=== PATIENT | female | born 1935 | race Caucasian/White ===

== ENCOUNTER 2018-03-10 14:41 | Emergency (ER) | payer OTHER ==
--- NOTE | 2018-03-10 15:30 | RAD REPORT ---
EXAM DESCRIPTION: CT - [id number] - 03/10/2018 3:08 pm CLINICAL HISTORY: Trip and fall, head and neck injury COMPARISON: None. TECHNIQUE: Axial 5 mm thick images of the head were obtained. Axial 2 mm thick images of the cervic al spine were obtained with sagittal and coronal reconstruction images generated and reviewed. All CT scans are performed using dose optimization technique as appropriate and may include automated exposure control or mA/KV adjustment according to patient size. FINDINGS: No intracranial hemorrhage, mass, edema or acute intracranial finding. No acute cortical based infarc tion. No cortical edema or sulcal effacement. Patient does have atrophy and chronic ischemic change. Ventricles do appear to be somewhat out of proportion to the amount of volume loss. Correlation can b e made with any clinical findings or history of normal pressure hydrocephalus. No suspicion for trans ependymal migration of CSF. No extra-axial fluid collections. Mastoid air cells and paranasal sinuses are clear. No globe or orbit abnormality seen. Cervical bodies are normal in height. No subluxation abnormality. There is straightening of the usual cervical lordosis. No fracture or acute vertebral body finding seen. C2-3 disc space narrowing is pr esent. There are moderate facet joint degenerative changes at this level. Advanced right-sided facet degenerative change at C3-4 with right foraminal stenosis. Large endplate spurs project from the left posterior margin C4-5. There is central spinal stenosis and probable flattening of the cord. Signifi cant right facet degenerative change present with right foraminal stenosis. Advanced facet joint dege nerative change on the right at C5-6 with foraminal stenosis. There is an overall slight disc space n arrowing throughout all levels of the cervical spine. No paraspinal mass or hematoma. IMPRESSION: No hemorrhage, edema or acute intracranial finding. Patient has a small scalp hematoma l eft periorbital region. Patient has atrophy and chronic ischemic change with ventricles appearing out of proportion to the am ount of volume loss. Correlation is needed with any exam findings or history of normal pressure hydro cephalus. Advanced cervical spine degenerative changes are present. Patient has central spinal stenosis and pro bable cord flattening at C4-5. No fracture or acute cervical spine finding.
--- NOTE | 2018-03-10 15:53 | RAD REPORT ---
EXAM DESCRIPTION: RAD - Ribs Left - 03/10/2018 3:31 pm CLINICAL HISTORY: Trip and fall, left-sided rib pain COMPARISON: None. FINDINGS: No displaced rib fracture is seen and no non-displaced rib fractures suspected. No aggress fabiola rib lesion. No underlying pneumothorax, effusion, infiltrate or pulmonary contusion. Prominent co stochondral calcifications seen. IMPRESSION: Negative left rib series.
--- NOTE | 2018-03-10 15:54 | RAD REPORT ---
EXAM DESCRIPTION: RAD - Chest Single View - 03/10/2018 3:31 pm CLINICAL HISTORY: Trip and fall, chest, rib and elbow pain COMPARISON: None. TECHNIQUE: AP portable chest image was obtained 1518 hours . FINDINGS: Mild underlying fibrotic lung pattern is present. No pulmonary contusion or acute lung par enchymal process seen. Heart and vasculature are normal. No measurable pleural effusion and no pneumo thorax. No acute bone finding. Thoracolumbar scoliosis is noted. No gross rib abnormality noted. No a cute aortic findings suspected. IMPRESSION: No pulmonary contusion, pneumothorax or other acute traumatic injury to the chest. Fibrotic lung change seen as a baseline.
[2018-03-10] MEDS ORDERED: LIDOCAINE 1% W/EPI 1:100,000 MDV 50 ML VIAL ONE (17:10)
--- NOTE | 2018-03-10 17:32 | EDPHYS ---
Physician Documentation [facility] Name: Socorro Mccain Age: 82 yrs Sex: Female : 1935 Arrival Date: 03/10/2018 Time: 14:42 Bed 27 Private MD: ED Physician Eliezer Ly HPI: 03/10 19:10 This 82 yrs old Female presents to ER via Ambulatory with complaints of Fall kdr Injury. 19:10 Details of fall: The patient fell from an upright position, while standing. Onset: The kdr symptoms/episode began/occurred suddenly, just prior to arrival. Associated injuries: The patient sustained injury to the head. Severity of symptoms: At their worst the symptoms were mild, in the emergency department the symptoms are unchanged. The patient has not experienced similar symptoms in the past. The patient has not recently seen a physician. Historical: - Allergies: 14:47 No Known Allergies; ch - Home Meds: 14:47 levothyroxine oral [Active]; bloodpressure pill [Active]; ch - PMHx: 14:47 Hypothyroidism; Hypertension; ch - PSHx: 14:47 Thyroidectomy; Appendectomy; ch - Immunization history: Last tetanus immunization: unknown. - Social history:: Smoking status: Patient/guardian denies using tobacco. ROS: 19:10 Constitutional: Negative for fever, chills, and weight loss, Eyes: Negative for injury, kdr pain, redness, and discharge, ENT: Negative for injury, pain, and discharge, Neck: Negative for injury, pain, and swelling, Cardiovascular: Negative for chest pain, palpitations, and edema, Respiratory: Negative for shortness of breath, cough, wheezing, and pleuritic chest pain, Abdomen/GI: Negative for abdominal pain, nausea, vomiting, diarrhea, and constipation, Back: Negative for injury and pain, : Negative for injury, bleeding, discharge, and swelling, MS/Extremity: Negative for injury and deformity, Neuro: Negative for headache, weakness, numbness, tingling, and seizure activity. Psych: Negative for depression, anxiety, suicide ideation, homicidal ideation, and hallucinations, Allergy/Immunology: Negative for hives, rash, and allergies, Endocrine: Negative for neck swelling, polydipsia, polyuria, polyphagia, and marked weight changes, Hematologic/Lymphatic: Negative for swollen nodes, abnormal bleeding, and unusual bruising. 19:10 Skin: Positive for abrasion(s), laceration(s), Negative for abscesses. Exam: 19:10 Constitutional: This is a well developed, well nourished patient who is awake, alert, kdr and in no acute distress. Eyes: Pupils equal round and reactive to light, extra-ocular motions intact. Lids and lashes normal. Conjunctiva and sclera are non-icteric and not injected. Cornea within normal limits. Periorbital areas with no swelling, redness, or edema. ENT: Nares patent. No nasal discharge, no septal abnormalities noted. Tympanic membranes are normal and external auditory canals are clear. Oropharynx with no redness, swelling, or masses, exudates, or evidence of obstruction, uvula midline. Mucous membranes moist. Neck: Trachea midline, no thyromegaly or masses palpated, and no cervical lymphadenopathy. Supple, full range of motion without nuchal rigidity, or vertebral point tenderness. No Meningismus. Chest/axilla: Normal chest wall appearance and motion. Nontender with no deformity. No lesions are appreciated. Cardiovascular: Regular rate and rhythm with a normal S1 and S2. No gallops, murmurs, or rubs. Normal PMI, no JVD. No pulse deficits. Respiratory: Lungs have equal breath sounds bilaterally, clear to auscultation and percussion. No rales, rhonchi or wheezes noted. No increased work of breathing, no retractions or nasal flaring. Abdomen/GI: Soft, non-tender, with normal bowel sounds. No distension or tympany. No guarding or rebound. No evidence of tenderness throughout. Back: No spinal tenderness. No costovertebral tenderness. Full range of motion. 19:10 Head/face: Noted is contusion, that is superficial, of the forehead, a laceration(s), that is linear, that is jagged, 3 cm(s). Vital Signs: 14:49 BP 183 / 69; Pulse 58; Resp 16; Temp 98.3; Pulse Ox 99% on R/A; Weight 50.8 kg; Height ch 5 ft. 2 in. (157.48 cm); Pain 6/10; 16:30 BP 170 / 106; Pulse 68; Resp 16; Pulse Ox 99% on R/A; Pain 8/10; mb3 16:30 BP 162 / 49; Pulse 73; Resp 16; Pulse Ox 99% on R/A; Pain 3/10; mb3 14:49 Body Mass Index 20.48 (50.80 kg, 157.48 cm) ch Brannon Coma Score: 15:04 Eye Response: spontaneous(4). Verbal Response: oriented(5). Motor Response: obeys mb3 commands(6). Total: 15. Trauma Score (Adult): 15:04 Eye Response: spontaneous(1); Verbal Response: oriented(1); Motor Response: obeys mb3 commands(2); Systolic BP: > 89 mm Hg(4); Respiratory Rate: 10 to 29 per min(4); [place] Score: 15; Trauma Score: 12 Laceration: 17:30 Wound Repair of 3cm ( 1.2in ) subcutaneous laceration to left supraorbital region. jr8 Irregularly shaped.. Minimal bleeding noted.. Distal neuro/vascular/tendon intact. Anesthesia: Local anesthetic administered with 3 mls of 1% lidocaine w/ Epi. Wound prep: Extensive cleansing with betadine, Wound margin revised minimally, Wound explored extensively. Skin closed with 6 5-0 Prolene using interrupted sutures and sterile technique. Patient tolerated well. MDM: 17:31 Patient medically screened. kdr 19:10 Data reviewed: vital signs, nurses notes, lab test result(s), radiologic studies. kdr Counseling: I had a detailed discussion with the patient and/or guardian regarding: the historical points, exam findings, and any diagnostic results supporting the discharge/admit diagnosis, radiology results, the need for outpatient follow up. 03/10 15:05 Order name: CT Head C Spine; Complete Time: 16:54 kdr 03/10 15:05 Order name: CXR XRAY; Complete Time: 16:54 kdr 03/10 15:05 Order name: Ribs Left XRAY; Complete Time: 16:54 kdr Administered Medications: 17:20 Drug: Lidocaine-Epinephrine -1%: (1:100,000) 1 vials Volume: 20 ml; Route: Infiltration;jr8 17:59 Follow up: Response: No adverse reaction; Marked relief of symptoms mb3 17:52 Drug: Tetanus-Diphtheria Toxoid Adult 0.5 ml {Scalper Operator: [facility]. Exp: mb3 06/03/2020. Lot #: [id number]. } Route: IM; Site: right deltoid; 17:59 Follow up: Response: No adverse reaction mb3 Disposition: 19:10 I agree with the assessment and plan of care. kdr Disposition: 03/10/18 17:31 Discharged to Home. Impression: Fall, Closed head injury, rib contusions, multiple skin tears, forehead laceration. - Condition is Stable. - Discharge Instructions: Contusion, [id number], Facial Laceration, [id number], Sutured Wound Care, [id number], Head Injury, Adult, [id number]-ps-Oyqg. - Prescriptions for Keflex 500 mg Oral Capsule - take 1 capsule by ORAL route every 6 hours for 3 days; 12 capsule. - Medication Reconciliation Form, Thank You Letter, Antibiotic Education, Prescription Opioid Use form. - Follow up: Private Physician; When: 2 - 3 days; Reason: If symptoms return, Further diagnostic work-up, Recheck today's complaints, Continuance of care, Re-evaluation by your physician. - Problem is new. - Symptoms have improved. - Notes: Sutures should be taken out in 5 - 7 days. Signatures: Dispatcher [employer] EDMS Shantel Deloen RN RN Eliezer Ly MD MD [facility] Reji Cormier PA PA jr8 Elver Logan RN RN mb3 Corrections: (The following items were deleted from the chart) 17:59 17:31 03/10/2018 17:31 Discharged to Home. Impression: Fall, Closed head injury, rib mb3 contusions, multiple skin tears, forehead laceration. Condition is Stable. Forms are Medication Reconciliation Form, Thank You Letter, Antibiotic Education, Prescription Opioid Use. Follow up: Private Physician; When: 2 - 3 days; Reason: If symptoms return, Further diagnostic work-up, Recheck today's complaints, Continuance of care, Re-evaluation by your physician. Problem is new. Symptoms have improved. kdr
--- NOTE | 2018-03-10 17:32 | ER ---
Nurse's Notes [facility] Name: Socorro Mccain Age: 82 yrs Sex: Female : 1935 Arrival Date: 03/10/2018 Time: 14:42 Bed 27 Private MD: Diagnosis: Fall, Closed head injury, rib contusions, multiple skin tears, forehead laceration Presentation: 03/10 14:47 Presenting complaint: Patient states: I tripped and fell over a loose board about 1 ch hour ago. I hit my head and elbow on the floor. no LOC but very dizzy after. Care prior to arrival: None. Mechanism of Injury: Fall. Trauma event details: Injury occurred in the [facility], Injury occurred: at home. Injury occurred: March 10, 2018 Injury occurred at: 13:45. 14:47 Method Of Arrival: Ambulatory 14:47 Acuity: ELIZABETH 4 14:49 Transition of care: patient was not received from another setting of care. Onset of ch symptoms was March 10, 2018 at 13:45. Initial Sepsis Screen: Does the patient meet any 2 criteria? No. Patient's initial sepsis screen is negative. Does the patient have a suspected source of infection? No. Patient's initial sepsis screen is negative. Triage Assessment: 14:49 General: Appears in no apparent distress. comfortable, Behavior is calm, cooperative, ch appropriate for age. Pain: Complains of pain in forehead, left eye, left lateral posterior chest, left lateral anterior chest, left breast and left arm. Trauma Activation: Physician: ED Physician; Name: Dr. Ly; Notified At: 14:49; Arrived At: 14:49 Physician: General Surgeon; Name: ; Notified At: 14:49; Arrived At: Physician: Radiology; Name: ; Notified At: 14:49; Arrived At: Physician: Respiratory; Name: ; Notified At: 14:49; Arrived At: Physician: Lab; Name: ; Notified At: 14:49; Arrived At: Historical: - Allergies: 14:47 No Known Allergies; ch - Home Meds: 14:47 levothyroxine oral [Active]; bloodpressure pill [Active]; ch - PMHx: 14:47 Hypothyroidism; Hypertension; ch - PSHx: 14:47 Thyroidectomy; Appendectomy; ch - Immunization history: Last tetanus immunization: unknown. - Social history:: Smoking status: Patient/guardian denies using tobacco. Screenin:04 Abuse screen: Denies threats or abuse. Tuberculosis screening: No symptoms or risk mb3 factors identified. 15:07 Nutritional screening: No deficits noted. Fall Risk Fall in past 12 months (25 points). mb3 Primary Survey: 14:47 A: Airway: patent. 15:05 Breathing/Chest: Respiratory pattern: regular, Respiratory effort: spontaneous, mb3 unlabored, Breath sounds: clear, bilaterally. Circulation: Heart tones present. Pulses: palpable right radial artery, right dorsalis pedis artery, left radial artery and left dorsalis pedis artery. Skin color: pink. Disability Alert. 16:35 Reassessment Breathing/Chest Respiratory pattern Regular Respiratory effort Spontaneous mb3 Unlabored. Secondary Survey: 15:09 HEENT: Head Other left side of left eyebrow has contusion. Gastrointestinal: No mb3 deficits noted. Abdomen is soft, flat, Bowel sounds present in all quadrants. : No signs and/or symptoms were reported regarding the genitourinary system. Musculoskeletal: No signs and/or symptoms reported regarding the musculoskeletal system. Injury Description: Abrasion sustained to left elbow and left wrist is bleeding, slightly bleeding, with mild abrasion and ecchymosis visualized. Assessment: 14:47 General: Appears in no apparent distress. comfortable, Behavior is calm, cooperative, ch appropriate for age. 15:01 Reassessment: Out of room to CT. mb3 15:34 Reassessment: Back from CT. mb3 17:39 Reassessment: Patient and/or family updated on plan of care and expected duration. Pain mb3 level reassessed. Patient is alert, oriented x 3, equal unlabored respirations, skin warm/dry/pink. Patient states feeling better. Vital Signs: 14:49 BP 183 / 69; Pulse 58; Resp 16; Temp 98.3; Pulse Ox 99% on R/A; Weight 50.8 kg; Height ch 5 ft. 2 in. (157.48 cm); Pain 6/10; 16:30 BP 170 / 106; Pulse 68; Resp 16; Pulse Ox 99% on R/A; Pain 8/10; mb3 16:30 BP 162 / 49; Pulse 73; Resp 16; Pulse Ox 99% on R/A; Pain 3/10; mb3 14:49 Body Mass Index 20.48 (50.80 kg, 157.48 cm) Brannon Coma Score: 15:04 Eye Response: spontaneous(4). Verbal Response: oriented(5). Motor Response: obeys mb3 commands(6). Total: 15. Trauma Score (Adult): 15:04 Eye Response: spontaneous(1); Verbal Response: oriented(1); Motor Response: obeys mb3 commands(2); Systolic BP: > 89 mm Hg(4); Respiratory Rate: 10 to 29 per min(4); [place] Score: 15; Trauma Score: 12 ED Course: 14:42 Patient arrived in ED. sb2 14:49 Triage completed. ch 14:49 Arm band placed on left wrist. Patient placed in an exam room, on a stretcher. 14:55 Eliezer Ly MD is Attending Physician. [facility] 15:03 Elver Logan RN is Primary Nurse. mb3 15:08 CT Head C Spine In Process Unspecified. EDMS 15:19 X-ray completed. Patient tolerated procedure well. Patient moved to radiology via jb2 stretcher. Patient moved back from radiology. 15:30 CXR XRAY In Process Unspecified. EDMS 15:30 Ribs Left XRAY In Process Unspecified. EDMS 16:35 Patient maintains SpO2 saturation greater than 95% on room air. mb3 16:36 Patient has correct armband on for positive identification. Bed in low position. Call 3 light in reach. Side rails up X 1. Adult w/ patient. 16:36 Thermoregulation: warm blanket given to patient. mb3 17:10 Assist provider with laceration repair. Patient did not have IV access during this 3 emergency room visit. Administered Medications: 17:20 Drug: Lidocaine-Epinephrine -1%: (1:100,000) 1 vials Volume: 20 ml; Route: Infiltration;jr8 17:59 Follow up: Response: No adverse reaction; Marked relief of symptoms mb3 17:52 Drug: Tetanus-Diphtheria Toxoid Adult 0.5 ml {Glove Presser: [facility]. Exp: mb3 06/03/2020. Lot #: [id number]. } Route: IM; Site: right deltoid; 17:59 Follow up: Response: No adverse reaction mb3 Intake: 16:30 PO: 0ml; Total: 0ml. mb3 Outcome: 17:31 Discharge ordered by . kdr 17:53 Discharged to home ambulatory, with family. mb3 17:53 Condition: stable 17:53 Discharge instructions given to patient, family, Instructed on discharge instructions, follow up and referral plans. medication usage, Demonstrated understanding of instructions, follow-up care, medications, Prescriptions given X 1. 17:54 Patient's length of stay in the Emergency Department was greater than 2 hours. mb3 17:59 Patient left the ED. mb3 Signatures: Dispatcher [employer] EDMS Sahntel Deleon, RN RN Eliezer Antoine MD MD kdr Buechter, Jesse jb2 Roszak, Josh, PA PA jr8 Isabel Diez2 Elver Logan RN RN mb3 Corrections: (The following items were deleted from the chart) 16:35 16:33 Reassessment: Back from CT mb3 mb3 16:35 16:33 Reassessment: Out of room to CT mb3 mb3
[2018-03-10] MEDS ORDERED: TETANUS & DIPHTHERIA TOX,ADULT 0.5 ML VIAL ONE (17:48)
== END 2018-03-10 17:59 | disposition home or self-care (01) ==
LOC: ER 14:41
PROC: 0JQ10ZZ Repair Face Subcutaneous Tissue and Fascia, Open Approach (ICD-10-PCS; principal; 2018-03-10)
DX: S01.81XA Laceration without foreign body of other part of head, initial encounter (principal); S09.8XXA Other specified injuries of head, initial encounter; S20.219A Contusion of unspecified front wall of thorax, initial encounter; W18.39XA Other fall on same level, initial encounter; Y93.89 Activity, other specified; Y92.9 Unspecified place or not applicable; Z23 Encounter for immunization; I10 Essential (primary) hypertension; E03.9 Hypothyroidism, unspecified
CPT/HCPCS: 70450; 71045; 72125; 90714; 99284